=== PATIENT | female | born 1980 ===

== ENCOUNTER 2021-07-17 09:29 | Emergency (ER) | payer OTHER ==
[2021-07-17 09:34] VITALS: BP 134/77
[2021-07-17 10:35] LABS: Basophils % (Auto) 0.4 % (0.0-1.8); Eosinophils # (Auto) 0.2 K/mm3 (0.0-0.4); Eosinophils % (Auto) 2.4 % (0.0-4.3); Hematocrit 31.2 % (30.3-42.9); Hemoglobin 10.3 gm/dl (10.1-14.3); Lymphocytes # (Auto) 2.9 K/mm3 (1.2-5.4); Lymphocytes % (Auto) 30.1 % (13.4-35.0); Mean Corpuscular HGB Conc 33 % (30-34); Mean Corpuscular Volume 86 fl (79-97); Monocytes # (Auto) 0.7 K/mm3 (0.0-0.8); Monocytes % (Auto) 7.6 % (0.0-7.3); Platelet Count 328 K/mm3 (140-440); Red Blood Count 3.66 M/mm3 (3.65-5.03); Red Cell Distribution Width 14.1 % (13.2-15.2)
[2021-07-17 11:20] LABS: Alanine Aminotransferase 19 units/L (7-56); Blood Urea Nitrogen 13 mg/dL (7-17); Calcium 9.1 mg/dL (8.4-10.2); Hemolysis Index 2
[2021-07-17 11:37] LABS: BUN/Creatinine Ratio 26
--- NOTE | 2021-07-17 11:53 | XRay Report ---
XR chest routine 2V INDICATION / CLINICAL INFORMATION: +covid, SOB. COMPARISON: None available. FINDINGS: SUPPORT DEVICES: None. HEART /PULMONARY VASCULATURE: No significant abnormality. LUNGS / PLEURA: No significant pulmonary or pleural abnormality. No pneumothorax. ADDITIONAL FINDINGS: No significant additional findings. IMPRESSION: 1. No acute findings. Signer Name: Carlos Perez MD Signed: 07/17/2021 11:48 AM Workstation Name: [id number]
--- NOTE | 2021-07-17 13:32 | Emergency Department Report ---
- General Chief Complaint: Dyspnea/Respdistress Stated Complaint: COVID +/XAVI Time Seen by Provider: 07/17/21 13:28 Source: patient Mode of arrival: Ambulatory Limitations: No Limitations - History of Present Illness Initial Comments: Patient is a 40-year-old female presents emergency room with complaints of symptoms of COVID-19. She tested positive for COVID-19 on 07/06/2021. She states that she has been taking [id number] medications. She states that her primary care doctor also gave her azithromycin and she completed the course. Patient states that she has had mild dry cough, shortness of breath, chills, body aches, loss of sense of smell and taste. She denies any vomiting, diarrhea, chest pain, leg swelling, pleuritic pain. Past medical history of asthma. No allergies to medications. She is a previous smoker. - Related Data Allergies Allergy/AdvReac Type Severity Reaction Status Date / Time No Known Allergies Allergy Verified 07/17/21 09:34 ED Review of Systems ROS: Stated complaint: COVID +/XAVI Other details as noted in HPI Comment: All other systems reviewed and negative ED Physical Exam - General Limitations: No Limitations General appearance: alert, in no apparent distress - Head Head exam: Present: atraumatic, normocephalic - Eye Eye exam: Present: normal appearance - ENT ENT exam: Present: mucous membranes moist - Respiratory Respiratory exam: Present: normal lung sounds bilaterally. Absent: respiratory distress, wheezes, rales, rhonchi, stridor, chest wall tenderness, accessory muscle use, decreased breath sounds, prolonged expiratory - Cardiovascular Cardiovascular Exam: Present: regular rate, normal rhythm, normal heart sounds. Absent: systolic murmur, diastolic murmur, rubs, gallop - Neurological Exam Neurological exam: Present: alert, oriented X3 - Psychiatric Psychiatric exam: Present: normal affect, normal mood - Skin Skin exam: Present: warm, dry, intact ED Course Vital Signs 07/17/21 07/17/21 09:33 13:29 Temperature 99 F Pulse Rate 79 67 Respiratory 24 Rate Blood Pressure 134/77 [Right] O2 Sat by Pulse 98 100 Oximetry ED Medical Decision Making - Lab Data Result diagrams: 07/17/21 09:58 07/17/21 09:58 Lab Results 07/17/21 07/17/21 07/17/21 Range/Units 09:58 09:58 09:58 WBC 9.6 (4.5-11.0) K/mm3 RBC 3.66 (3.65-5.03) M/mm3 Hgb 10.3 (10.1-14.3) gm/dl Hct 31.2 (30.3-42.9) % MCV 86 (79-97) fl MCH 28 (28-32) pg MCHC 33 (30-34) % RDW 14.1 (13.2-15.2) % Plt Count 328 (140-440) K/mm3 Lymph % (Auto) 30.1 (13.4-35.0) % Randall % (Auto) 7.6 H (0.0-7.3) % Eos % (Auto) 2.4 (0.0-4.3) % Baso % (Auto) 0.4 (0.0-1.8) % Lymph # (Auto) 2.9 (1.2-5.4) K/mm3 Randall # (Auto) 0.7 (0.0-0.8) K/mm3 Eos # (Auto) 0.2 (0.0-0.4) K/mm3 Baso # (Auto) 0.0 (0.0-0.1) K/mm3 Seg Neutrophils % 59.5 (40.0-70.0) % Seg Neutrophils # 5.7 (1.8-7.7) K/mm3 Sodium 140 (137-145) mmol/L Potassium 4.0 (3.6-5.0) mmol/L Chloride 102.0 (98-107) mmol/L Carbon Dioxide 30 (22-30) mmol/L Anion Gap 12 mmol/L BUN 13 (7-17) mg/dL Creatinine 0.5 L (0.6-1.2) mg/dL Estimated GFR > 60 ml/min BUN/Creatinine Ratio 26 % Glucose 134 H (65-100) mg/dL Calcium 9.1 (8.4-10.2) mg/dL Total Bilirubin < 0.20 (0.1-1.2) mg/dL AST 11 (5-40) units/L ALT 19 (7-56) units/L Alkaline Phosphatase 81 (35-129) units/L Total Protein 6.9 (6.3-8.2) g/dL Albumin 4.0 (3.9-5) g/dL Albumin/Globulin Ratio 1.4 % HCG, Qual Negative (Negative) - Radiology Data Radiology results: report reviewed Ordering Physician: DORIAN BAR Date of Service: 07/17/21 Procedure(s): XR chest routine 2V Accession Number(s): [id number] cc: DORIAN BAR Fluoro Time In Minutes: XR chest routine 2V INDICATION / CLINICAL INFORMATION: +covid, SOB. COMPARISON: None available. FINDINGS: SUPPORT DEVICES: None. HEART /PULMONARY VASCULATURE: No significant abnormality. LUNGS / PLEURA: No significant pulmonary or pleural abnormality. No pneumothorax. ADDITIONAL FINDINGS: No significant additional findings. IMPRESSION: 1. No acute findings. Signer Name: Miller Price MD Signed: 07/17/2021 11:48 AM Workstation Name: [id number] Transcribed By: HARLEY Dictated By: MILLER PRICE MD Electronically Authenticated By: MILLER PRICE MD Signed Date/Time: 07/17/21 1148 DD/ 1148 TD/TT: - Medical Decision Making Patient is a 40-year-old female presents emergency room with complaints of symptoms of COVID-19. She tested positive for COVID-19 on 07/06/2021. She stat es that she has been taking [id number] medications. She states that her primary care doctor also gave her azithromycin and she completed the course. Patient states that she has had mild dry cough, shortness of breath, chills, body aches, loss of sense of smell and taste. She denies any vomiting, diarrhea, chest pain, leg swelling, pleuritic pain. Past medical history of asthma. No allergies to medications. She is a previous smoker. Vitals are normal. Breath sounds are clear bilaterally, no wheezing, no rales, no rhonchi. Chest x-ray: 1. No acute findings. Labs are stable. Repeated patient's heart rate and oxygen and her oxygen level is 100% on room air and heart rate is within normal limits. PERC criteria negative For PE. Patient likely still having symptoms from COVID-19. She has no severe signs of COVID-19, no hypoxia, no infiltrates on x-ray. Discussed supportive care with patient. Discussed the importance of outpatient primary care follow-up. Discussed return precautions. Advised patient May take Mucinex or TheraFlu [id number]. May take Tylenol as needed for fever, body aches, headache. Increase your fluid intake over the next several days. Follow-up with your primary care doctor. Return to emergency room immediately for any new or worsening symptoms. Recommend for you to get a pulse oximetry meter [id number] and to return to emergency room if your oxygen is dropping below 93%. Critical care attestation.: If time is entered above; I have spent that time in minutes in the direct care of this critically ill patient, excluding procedure time. ED Disposition Clinical Impression: COVID-19 Disposition: 01 HOME / SELF CARE / HOMELESS Is pt being admited?: No Does the pt Need Aspirin: No Condition: Stable Instructions: COVID-19 Additional Instructions: May take Mucinex or TheraFlu [id number]. May take Tylenol as needed for fever, body aches, headache. Increase your fluid intake over the next several days. Follow-up with your primary care doctor. Return to emergency room immediately for any new or worsening symptoms. Recommend for you to get a pulse oximetry meter [id number] and to return to emergency room if your oxygen is dropping below 93%. Referrals: your, primary care doctor [Other] - 2-3 Days Time of Disposition: 13:31 Print Language: ARABIC
== END 2021-07-17 13:40 | disposition home or self-care (01) ==
LOC: ED 09:29
DX: U07.1 COVID-19 (principal)
CPT/HCPCS: 36415; 71046; 80053; 84703; 85025; 99283